=== PATIENT | female | born 1970 | race Caucasian/White ===

== ENCOUNTER 2016-06-13 16:33 | Emergency (ER) | payer MEDICARE, MEDICAID ==
[2016-06-13 17:12] VITALS: BP 127/69; PULSE 80; TEMP 98.5; BMI 16.7
--- NOTE | 2016-06-13 17:19 | EDPRACDOC ---
- General Information Chief Complaint: Toothache Stated Complaint: LT LOWER DENTAL PAIN Time Seen by Provider: 06/13/16 17:13 Information Source: Patient Home Medications: Home Medications Oxycodone HCl [Roxicodone] 5 mg PO Q4-6H PRN #10 tablet 04/19/16 Penicillin V Potassium 500 mg PO QID #40 tablet 04/19/16 Amoxicillin Trihydrate [Amoxicillin] 500 mg PO TID #21 tab 06/13/16 Naproxen Sodium 500 mg PO BID PRN #20 tablet.sa 06/13/16 Allergies/Adverse Reactions: Allergies Allergy/AdvReac Type Severity Reaction Status Date / Time tramadol Allergy Nausea/Vomi Verified 04/19/16 00:38 ting - History of Present Illness Onset: 3 months HPI: PT REPORTS RECURRENT LEFT LOWER TOOTH PAIN X 2 MTHS, STATES HAS APPT WITH DENTIST ON June, NO FEVER, HAS HAD CHILLS, NO N/V/D. Pain Severity: Reports: Severe Relevant History of: Reports: None Modifying Factors: improves with: Heat, Cold, Chewing. worse with: Anagelsics Associated Signs and Symptoms: Denies: Fever, Chills, Earache, Sore Throat ED Past Medical History - History Reviewed Yes Nurses notes reviewed and agree except as marked - Patient Medical History Neurological History: Denies: Seizures Cardiac History: Denies: Hypertension Psychological History: Reports: Depression Systemic History: Reports: Cancer. Denies: Diabetes Additional Past Medical History: CHRONIC BACK PAIN Surgical History: Reports: Hysterectomy - Social Medical History Smoking Status: Heavy tobacco smoker (5 or more cigarettes/day or daily pipe/ cigar) EDM Review of Systems - Review of Systems Constitutional: Chills. negative: Fever Eyes: negative: Blurred Vision, Double Vision Ears: negative: Drainage Throat: negative: Pain Nose: negative: Congestion, Discharge Mouth: Tooth Pain Respiratory: negative: Cough, Shortness of Breath, Wheezing Gastrointestinal: negative: Nausea, Vomiting Neurological: negative: Dizziness, Headache - Physical Exam Constitutional: Alert (Awake), No apparent distress Oriented to: Time, Person, Place Last recorded Vital Signs: Last Vital Signs Temp 98.5 F 06/13/16 17:11 Pulse 80 06/13/16 17:11 Resp 20 06/13/16 17:11 BP 127/69 06/13/16 17:11 Pulse Ox 94 06/13/16 17:11 Oxygen Pulse Oxygen Saturation 94 O2 Device Room Air Oxygen Flow Rate Fraction of Inspired Oxygen ( FIO2) - HEENT Head: Normal ( normocephalic) Eye Exam: Normal (PERRL, EOMI, Sclera white) Oropharynx: Normal (Pharynx:Moist without exudate,Gums-no swelling) Tympanic Membrane: Normal ENT EAC: Normal TMJ: Normal Nose: No Symptoms Reported (septum midline) Neck: Normal (FROM, trachea at midline) - Respiratory/Cardiovascular Respiratory: Normal - CTA (BBS clear to auscultation without adventitious sounds ) Cardiovascular: Normal (RRR without murmur, gallop or rub) - Integumentary Skin: Normal, Warm, Dry Lymphatics: Normal (no adenopathy) - Neurologic Memory Impaired: Normal Motor Function: Normal (Normal tone, Pulses 2+ No cyanosis or edema, FROM) Cranial Nerve: Normal (CN II-X11 intact sensation, strength 5/5) Cerebellar: Normal Mood Description: Normal Perception: Normal ED Tooth Problem Exam - HEENT Face: Normal Teeth: Left: Molar-3 Lower (TENDER, CARIOUS, BROKEN) Gingiva: Normal Palate: Normal Mouth Range of Motion: Normal Sinuses: Normal Oropharynx: Normal Neck: Normal - Differential Diagnosis Periapical Abscess, Periodontal Abscess - Additional Information [place] CONTROLLED SUBSTANCE DATABASE REVIEWED, PT RECEIVED #90 OXYCODONE 5 MG TABS ON 05/24/16, REGULARLY RECEIVES OXYCODONE FROM DR AMBROSE. Decision Time to Discharge: 17:18 - Departure Disposition: Home Condition: Stable Final Diagnosis: Dental abscess (peridontal) Instructions: Dental Abscess (ED) Education/Counseling Given To: Patient Education/Counseling Given Regarding: Diagnosis, Treatment, Prognosis, Follow Up Referrals: Jesse Ambrose MD [Primary Care Provider] - One Week Prescriptions: Amoxicillin Trihydrate [Amoxicillin] 500 mg PO TID #21 tab Naproxen Sodium 500 mg PO BID PRN #20 tablet.sa PRN Reason: Pain Additional Instructions: CONTINUE YOUR USUAL MEDICATIONS BEFORE, YOU MUST FOLLOW UP WITH A DENTIST FOR FURTHER CARE.
== END 2016-06-13 17:27 | disposition home or self-care (01) ==
LOC: EDMC 16:33
DX: K04.7 Periapical abscess without sinus (principal)
CPT/HCPCS: 99282

== ENCOUNTER 2016-06-26 17:45 | Emergency (ER) | payer MEDICARE, MEDICAID ==
[2016-06-26 18:06] VITALS: TEMP 98.9; BMI 17.3
[2016-06-26] MEDS ORDERED: IBUPROFEN 800 MG TAB PO ONE (19:17)
--- NOTE | 2016-06-26 19:35 | EDPRACDOC ---
- General Information Chief Complaint: Toothache Stated Complaint: PAIN AFTER TOOTH EXTRACTION Time Seen by Provider: 06/26/16 18:58 Information Source: Patient Mode Of Arrival: Car Home Medications: Home Medications Oxycodone HCl [Roxicodone] 5 mg PO Q4-6H PRN #10 tablet 04/19/16 Penicillin V Potassium 500 mg PO QID #40 tablet 04/19/16 Amoxicillin Trihydrate [Amoxicillin] 500 mg PO TID #21 tab 06/13/16 Naproxen Sodium 500 mg PO BID PRN #20 tablet.sa 06/13/16 Meloxicam [Mobic] 7.5 mg PO BID #20 tab 06/26/16 Allergies/Adverse Reactions: Allergies Allergy/AdvReac Type Severity Reaction Status Date / Time tramadol Allergy Nausea/Vomi Verified 04/19/16 00:38 ting - History of Present Illness Onset: 5 days HPI: PT PRESENTS TODAY WITH PAINFUL LEFT JAW X 3 DAYS. PT STATES THAT SHE HAD A BROKEN TOOTH EXTRACTED. STATES TOOTH HAD TO BE "CHISELED OUT". DENIES FEVER/ DISCHARGE. CURRENTLY TAKING ANTIBIOTICS. STATES THAT SHE CANNOT OPEN HER MOUTH ALL THE WAY AND IS CONCERNED THAT THE DENTIST MAY HAVE FRACTURED HER JAW. Pain Severity: Reports: Moderate Relevant History of: Reports: None Modifying Factors: improves with: Chewing Associated Signs and Symptoms: Reports: None ED Past Medical History - History Reviewed Yes Nurses notes reviewed and agree except as marked - Patient Medical History Neurological History: Denies: Seizures Cardiac History: Denies: Hypertension Psychological History: Reports: Depression Systemic History: Reports: Cancer. Denies: Diabetes Additional Past Medical History: CHRONIC BACK PAIN Surgical History: Reports: Hysterectomy - Social Medical History Smoking Status: Heavy tobacco smoker (5 or more cigarettes/day or daily pipe/ cigar) EDM Review of Systems - Review of Systems ROS Negative Except as Marked: Yes All systems reviewed and were negative except as marked Constitutional: No Symptoms Reported Eyes: No Symptoms Reported Ears: No Symptoms Reported Throat: No Symptoms Reported Nose: No Symptoms Reported Mouth: Other (JAW PAIN) Respiratory: No Symptoms Reported Cardiovascular: No Symptoms Reported Gastrointestinal: No Symptoms Reported Neurological: No Symptoms Reported Musculoskeletal: No Symptoms Reported Integumentary: No Symptoms Reported - Physical Exam Constitutional: Alert (Awake), No apparent distress Oriented to: Time, Person, Place Last recorded Vital Signs: Last Vital Signs Temp 98.9 F 06/26/16 18:05 Pulse 112 06/26/16 18:05 Resp 18 06/26/16 18:05 BP 149/75 06/26/16 18:05 Pulse Ox 96 06/26/16 18:05 Oxygen Pulse Oxygen Saturation 96 O2 Device Oxygen Flow Rate Fraction of Inspired Oxygen ( FIO2) - HEENT Head: Normal Eye Exam: Normal Oropharynx: Other (SMALL AMOUNT OF SWELLING TO LEFT LOWER JAW W/OUT APPARENT JAW DEFORMITY; PT CAN ONLY OPEN MOUTH ABOUT 30 DEGREES; FROM WHAT I CAN SEE, I DO NOT NOTE ANYTHING UNUSUAL ABOUT THE TOOTH EXTRACTION SITE) Tympanic Membrane: Normal ENT EAC: Normal Nose: No Symptoms Reported Neck: Normal, Denies Pain, Midline - Respiratory/Cardiovascular Respiratory: Normal - CTA Cardiovascular: Normal - GI Palpation: Normal Tenderness: Non tender - Musculoskeletal Back: Normal Extremities: Normal - Integumentary Skin: Normal Lymphatics: Normal - Neurologic Cerebellar: Normal Mood Description: Normal Thought: Coherent Perception: Normal ED Tooth Problem Exam - HEENT Face: Swelling, Tender Teeth: Left: Molar-2 Lower (EXTRACTED TOOTH) Gingiva: Normal Palate: Normal Mouth Range of Motion: Other (LIMITED D/T STATED PAIN) Sinuses: Normal Oropharynx: Normal Neck: Normal, Denies Pain, Midline - Additional Information CASE DISCUSSED WITH DR. YANES. OK FOR HOME. Decision Time to Discharge: 21:02 - Departure Disposition: Home Condition: Good Final Diagnosis: Pain, dental Instructions: Dental Caries (ED) Education/Counseling Given To: Patient Education/Counseling Given Regarding: Diagnosis, Treatment, Follow Up Referrals: Jesse Ambrose MD [Primary Care Provider] - One Week Prescriptions: New Meloxicam [Mobic] 7.5 mg PO BID #20 tab No Action Oxycodone HCl [Roxicodone] 5 mg PO Q4-6H PRN #10 tablet PRN Reason: Breakthrough Pain Penicillin V Potassium 500 mg PO QID #40 tablet Amoxicillin Trihydrate [Amoxicillin] 500 mg PO TID #21 tab Naproxen Sodium 500 mg PO BID PRN #20 tablet.sa PRN Reason: Pain Additional Instructions: CONTINUE TO FOLLOW UP WITH DENTISTRY.
[2016-06-26 19:58] VITALS: BP 111/56; PULSE 72
--- NOTE | 2016-06-26 20:08 | DIRPT ---
CLINICAL DATA: Initial evaluation for acute left jaw pain for 5 days. Recent tooth extraction EXAM: CT MAXILLOFACIAL WITHOUT CONTRAST TECHNIQUE: Multidetector CT imaging of the maxillofacial structures was performed. Multiplanar CT image reconstructions were also generated. A small metallic BB was placed on the right lutheran in order to reliably differentiate right from left. COMPARISON: Prior study from 02/06/2004. FINDINGS: Visualized portions of the brain are within normal limits. Globes and orbits demonstrate no acute abnormality. Patient is status post extraction of left second mandibular molar. There is a subtle linear lucency traversing the extraction site/tooth socket (series 603, image 42). Subtle swelling with inflammatory stranding seen adjacent to the left mandibular body, best appreciated on coronal soft tissue windows sequence (series 400, image 37). Paranasal sinuses are well pneumatized and free of fluid. Visualized mastoid air cells are clear. Middle ear cavities are clear. IMPRESSION: Sequela of recent extraction of the left second mandibular molar. There is a subtle linear lucency traversing the tooth socket/ extraction site, suspicious for a possible small chip fracture. Subtle soft tissue stranding with swelling adjacent to the left mandibular body may be postoperative in nature or reflect sequela of early infection/ cellulitis. Electronically Signed By: Kory Ventura M.D. On: 06/26/2016 20:06
== END 2016-06-26 21:10 | disposition home or self-care (01) ==
LOC: EDMC 17:45
DX: K08.89 Other specified disorders of teeth and supporting structures (principal)
CPT/HCPCS: 70486; 99283; A9270; J3490